=== PATIENT | female | born 1970 | race Native Hawaiian/Other Pacific Islander ===

== ENCOUNTER 2020-08-19 11:45 | Outpatient (CLI) | payer OTHER | END 2020-08-19 19:37 | disposition home or self-care (01) | LOC: RAD 11:45 | PROVIDERS: ATTEND Internal Medicine | DX: M79.7 Fibromyalgia (principal); M54.9 Dorsalgia, unspecified; M79.642 Pain in left hand; M79.641 Pain in right hand; M25.562 Pain in left knee; M25.561 Pain in right knee; M25.512 Pain in left shoulder; M25.511 Pain in right shoulder; F31.9 Bipolar disorder, unspecified; R53.82 Chronic fatigue, unspecified ==